=== PATIENT | female | born 1940 | race Caucasian/White ===

== ENCOUNTER 2025-02-05 14:00 | Inpatient (IN) | payer OTHER ==
[2025-02-05] MEDS ORDERED: ACETAMINOPHEN 500 MG TABLET (FP) ONE (14:49)
[2025-02-05 15:02] LABS: ABSOLUTE IMMATURE GRANULOCYTES 0.03 x10^3/uL (0.0-0.031); BASOPHILS # 0.04 x10^3/uL (0.01-0.08); EOSINOPHIL % 1.3 % (0.7-5.8); EOSINOPHILS # 0.13 x10^3/uL (0.04-0.36); HEMATOCRIT 35.3 % (34.1-44.9); HEMOGLOBIN 11.3 g/dL (11.2-15.7); MEAN CELL VOLUME 89.1 fl (79.4-94.8); MEAN PLT VOLUME 10.3 fl (9.4-12.3); MONOCYTE # 0.82 x10^3/uL (0.24-0.86); MONOCYTE % 7.9 % (4.7-12.5); PLATELET COUNT 301 x10^3/uL (182-369); RDW 14.6 % (12.5-17.0)
[2025-02-05 15:08] LABS: ALBUMIN 3.6 g/dl (3.4-5.0); BILIRUBIN,TOTAL 0.6 mg/dl (0.2-1); CALCIUM 9.3 mg/dl (8.5-10.1); POTASSIUM 4.8 mmol/L (3.5-5.1); TOT PROT 6.7 g/dl (6.4-8.2)
[2025-02-05] MEDS: ACETAMINOPHEN 500 MG TABLET (FP) PO ONE (15:10)
[2025-02-05] MEDS ORDERED: ALBUTEROL SO4 2.5/IPRATROPIUM 0.5 INH SOL 3 ML VIAL.NEB. NEB PRN (17:04)
[2025-02-05] MEDS ORDERED: ACETAMINOPHEN 1000 MG/100 ML BAG IVPB PRN (17:06)
[2025-02-05 18:49] VITALS: BMI 19.7
[2025-02-05 19:03] LABS: HCV DIAGNOSTIC IN-HOUSE W/RFLX NON-REACTIVE (NONREACTIVE); HIV INTERPRETATION NEGATIVE (NEGATIVE)
[2025-02-05] MEDS: ATORVASTATIN CA 80 MG TABLET (FP) PO SCH (22:04)
[2025-02-05] MEDS: BUDESONIDE/FORMETEROL FUMARATE 80/4.5 mcg INHALER IH SCH (22:10)
[2025-02-06 08:15] LABS: ABSOLUTE IMMATURE GRANULOCYTES 0.03 x10^3/uL (0.0-0.031); BASOPHILS # 0.03 x10^3/uL (0.01-0.08); EOSINOPHIL % 1.1 % (0.7-5.8); EOSINOPHILS # 0.12 x10^3/uL (0.04-0.36); HEMATOCRIT 35.4 % (34.1-44.9); HEMOGLOBIN 11.6 g/dL (11.2-15.7); MCHC 32.8 g/dl (32.2-35.5); MEAN CELL VOLUME 87.4 fl (79.4-94.8); MEAN PLT VOLUME 10.2 fl (9.4-12.3); MONOCYTE # 0.81 x10^3/uL (0.24-0.86); MONOCYTE % 7.5 % (4.7-12.5); PLATELET COUNT 314 x10^3/uL (182-369); RDW 14.5 % (12.5-17.0)
[2025-02-06 08:31] LABS: INR 1.16 (0.83-1.09); PROTHROMBIN TIME (PATIENT) 12.9 SEC (9.7-13.0)
[2025-02-06 08:48] LABS: ALBUMIN 3.5 g/dl (3.4-5.0); BILIRUBIN,TOTAL 0.8 mg/dl (0.2-1); CALCIUM 9.4 mg/dl (8.5-10.1); CREATININE 0.9 mg/dl (0.6-1.3); MAGNESIUM 1.8 mg/dL (1.8-2.4); PHOSPHOROUS 3.5 (2.5-4.9); POTASSIUM 4.8 mmol/L (3.5-5.1); TOT PROT 6.6 g/dl (6.4-8.2)
[2025-02-06] MEDS: ESCITALOPRAM OXALATE 10 MG TABLET PO SCH (10:09)
[2025-02-06] MEDS: PANTOPRAZOLE SODIUM 40 MG VIAL IVPUSH SCH (10:09)
[2025-02-06] MEDS: amLODIPine BESYLATE 5 MG TABLET (FP) PO SCH (10:09)
[2025-02-06] MEDS: ACETAMINOPHEN 1000 MG/100 ML BAG IVPB PRN (20:07)
[2025-02-07 08:27] LABS: ABSOLUTE IMMATURE GRANULOCYTES 0.05 x10^3/uL (0.0-0.031); BASOPHILS # 0.04 x10^3/uL (0.01-0.08); EOSINOPHIL % 0.9 % (0.7-5.8); HEMATOCRIT 36.5 % (34.1-44.9); HEMOGLOBIN 11.6 g/dL (11.2-15.7); MCHC 31.8 g/dl (32.2-35.5); MEAN PLT VOLUME 10.4 fl (9.4-12.3); MONOCYTE # 0.94 x10^3/uL (0.24-0.86); MONOCYTE % 8.1 % (4.7-12.5); PLATELET COUNT 325 x10^3/uL (182-369); RDW 14.7 % (12.5-17.0)
[2025-02-07 08:41] LABS: INR 1.21 (0.83-1.09); PROTHROMBIN TIME (PATIENT) 13.4 SEC (9.7-13.0)
[2025-02-07 08:53] LABS: CALCIUM 9.4 mg/dl (8.5-10.1); MAGNESIUM 1.8 mg/dL (1.8-2.4); PHOSPHOROUS 3.7 (2.5-4.9)
[2025-02-07] MEDS: ASPIRIN 81 MG CHEWABLE TABLETS PO SCH (11:41)
[2025-02-07] MEDS: GABAPENTIN 100 MG CAPSULE PO SCH (15:02)
[2025-02-07] MEDS: HEPARIN NA (PORCINE) 5,000 UNITS/ML 1ML VIAL SQ SCH (21:39)
[2025-02-09] MEDS: ACETAMINOPHEN 325 MG TABLET (FP) PO PRN (09:41)
[2025-02-09 12:36] VITALS: RESP 18
[2025-02-11 09:58] VITALS: BP 126/61; PULSE 87; TEMP 98.2
[2025-02-11 14:12] LABS: EPITHELIAL CELLS 0-5 /hpf
== END 2025-02-11 13:55 | DRG 536 ==
LOC: FER 14:00 → FM/S 16:27
PROVIDERS: ADMIT Internal Medicine
DX: S72.111A Displaced fracture of greater trochanter of right femur, initial encounter for closed fracture (principal); E44.0 Moderate protein-calorie malnutrition; Z68.1 Body mass index [BMI] 19.9 or less, adult; M25.551 Pain in right hip; J44.9 Chronic obstructive pulmonary disease, unspecified; I10 Essential (primary) hypertension; E78.5 Hyperlipidemia, unspecified; R26.2 Difficulty in walking, not elsewhere classified; I25.10 Atherosclerotic heart disease of native coronary artery without angina pectoris; W19.XXXA Unspecified fall, initial encounter; Y93.9 Activity, unspecified; Y92.89 Other specified places as the place of occurrence of the external cause; Y99.9 Unspecified external cause status
CPT/HCPCS: 36415; 70450-TC; 71045-TC-FY; 72125-TC; 72170-TC-FY; 72192-TC; 73721-RT-TC; 80048; 80053; 81003; 81015; 83735; 84100; 85025; 85610; 86803; 86850; 86900; 86901; 87389; 93005; 97116-GP; 97163-GP; 99285-25; J0131; J1644

== ENCOUNTER 2025-02-19 08:11 | Inpatient (IN) | payer OTHER ==
[2025-02-19] MEDS ORDERED: ALBUTEROL SO4 0.083% IH SOL 2.5 MG/3 ML VIAL.NEB. NEB ONE (08:59)
[2025-02-19] MEDS ORDERED: methylPREDNISolone NA SUCC 125 MG/2 ML VIAL ONE (08:59)
[2025-02-19 09:01] LABS: HEMATOCRIT 40.2 % (34.1-44.9); HEMOGLOBIN 11.2 g/dL (11.2-15.7); MCHC 27.9 g/dl (32.2-35.5); MEAN CELL VOLUME 97.8 fl (79.4-94.8); MEAN PLT VOLUME 9.8 fl (9.4-12.3); PLATELET COUNT 797 x10^3/uL (182-369); RDW 14.9 % (12.5-17.0)
[2025-02-19 09:03] LABS: VENOUS BASE EXCESS -27.7 mmol/L (-2-2); VENOUS PCO2 24.5 mmHg (38-52)
[2025-02-19 09:07] LABS: VENOUS PH 6.881 (7.310-7.410)
[2025-02-19] MEDS: ALBUTEROL SO4 0.083% IH SOL 2.5 MG/3 ML VIAL.NEB. NEB SCH (09:22)
[2025-02-19] MEDS: methylPREDNISolone NA SUCC 125 MG/2 ML VIAL IVPUSH ONE (09:22)
[2025-02-19] MEDS ORDERED: PIPERACILLIN/TAZOB 3.375 GM 3.375 GM/50 ML BAG IVPB ONE (09:36)
[2025-02-19] MEDS ORDERED: VANCOMYCIN 1 GM PREMIX (F) 1 GM/200 ML BAG ONE (09:36)
[2025-02-19] MEDS: VANCOMYCIN 1,000 MG in DEXTROSE 5%-WATER - 250 ML IVPB ONE (09:45)
[2025-02-19] MEDS: PIPERACILLIN/TAZOB 3.375 GM 3.375 GM in DEXTROSE 5%-WATER - 50 ML IVPB ONE (09:45)
[2025-02-19 10:07] LABS: CHLORIDE 99 mmol/L (98-107); SODIUM 134 mmol/L (136-145)
[2025-02-19 10:10] LABS: ALBUMIN 2.6 g/dl (3.4-5.0); BLOOD UREA NITROGEN 63.2 mg/dL (7-18); CO2 5 mmol/L (21-32); GLUCOSE,RANDOM 112 mg/dL (74-106)
[2025-02-19 10:14] LABS: CREATININE 6.4 mg/dL (0.55-1.3); SGOT/AST 57 U/L (15-37)
[2025-02-19 10:15] LABS: BILIRUBIN,TOTAL 0.5 mg/dL (0.2-1); TOT PROT 7.3 g/dl (6.4-8.2)
[2025-02-19 10:16] LABS: ALK PHOS 141 U/L (45-117)
[2025-02-19 10:20] LABS: SGPT/ALT 49 U/L (13-61)
[2025-02-19] MEDS: SODIUM CHLORIDE 1,000 ML IV STA (10:25)
[2025-02-19 10:32] LABS: ANION GAP 30 mmol/L (4-13); POTASSIUM 8.2 mmol/L (3.5-5.1)
[2025-02-19] MEDS ORDERED: DEXTROSE 50%-WATER 25 GM/50 ML DISP.SYRIN ONE (11:16)
[2025-02-19] MEDS ORDERED: CALCIUM GLUC IN NACL, ISO-OSM 1 GM/50 ML BAG IVPB ONE (11:16)
[2025-02-19] MEDS ORDERED: INSULIN REGULAR HUMAN 100 UNITS/ML *VIAL ONE (11:17)
[2025-02-19 11:22] LABS: LACTIC ACID 13.5 mmol/L (0.4-2.0)
[2025-02-19] MEDS: INSULIN REGULAR HUMAN 100 UNITS/ML *VIAL IVPUSH ONE (11:44)
[2025-02-19] MEDS: DEXTROSE 50%-WATER - 25 GM/50 ML VIAL IVPUSH ONE (11:44)
[2025-02-19] MEDS: CALCIUM GLUCONATE 10% - 1,000 MG/10 ML VIAL IVPB ONE (11:44)
[2025-02-19 12:04] LABS: CHLORIDE 102 mmol/L (98-107); SODIUM 135 mmol/L (136-145)
[2025-02-19 12:08] LABS: CALCIUM 8.5 mg/dL (8.5-10.1)
[2025-02-19 12:09] LABS: BLOOD UREA NITROGEN 64.8 mg/dL (7-18); CO2 3 mmol/L (21-32); GLUCOSE,RANDOM 210 mg/dL (74-106)
[2025-02-19 12:12] LABS: CREATININE 6.4 mg/dL (0.55-1.3)
[2025-02-19 12:16] LABS: ANION GAP 30 mmol/L (4-13); POTASSIUM 7.9 mmol/L (3.5-5.1)
[2025-02-19] MEDS ORDERED: SODIUM BICARBONATE 8.4% 50 MEQ/50 ML DISP.SYRIN ONE (12:21)
[2025-02-19] MEDS: SODIUM BICARBONATE 8.4% 50 MEQ/50 ML VIAL IV ONE (12:27)
[2025-02-19] MEDS ORDERED: SODIUM CHLORIDE 250 ML IV PRN (13:12)
[2025-02-19] MEDS: SODIUM BICARBONATE 8.4% - 150 MEQ in DEXTROSE 5%-WATER - 950 ML IVPB SCH (14:20)
[2025-02-19] MEDS: SODIUM CHLORIDE 500 ML IV STA (14:42)
[2025-02-19] MEDS ORDERED: VASopressin 20 UNITS/ML VIAL IV ONE (16:01)
[2025-02-19] MEDS: NOREPINEPHRINE BITARTRATE/D5W 8 MG/250 ML BAG IVPB SCH (16:11)
[2025-02-19] MEDS: VASopressin 40 UNITS/100 ML BAG IV SCH (16:11)
[2025-02-19] MEDS: SODIUM CHLORIDE 250 ML IV STA (16:16)
[2025-02-19] MEDS: SODIUM BICARBONATE 8.4% 50 MEQ/50 ML DISP.SYRIN IVPUSH ONE (16:20)
[2025-02-19] MEDS ORDERED: METOPROLOL TARTRATE 5 MG/5 ML VIAL IVPUSH PRN (17:46)
[2025-02-19 18:52] LABS: HEPATITIS B SURF AG NON-MATERN NON-REACTIVE (NONREACTIVE)
[2025-02-19] MEDS ORDERED: AMIODARONE IN DEXTROSE,ISO-OSM 360 MG/200 ML BAG IV SCH (19:15)
[2025-02-19] MEDS: HYDROCORTISONE SOD SUCCINATE 100 MG/2 ML VIAL IVPUSH SCH (20:17)
[2025-02-19 20:28] LABS: HEMATOCRIT 27.7 % (34.1-44.9); HEMOGLOBIN 8.8 g/dL (11.2-15.7); MCHC 31.8 g/dl (32.2-35.5); MEAN CELL VOLUME 88.8 fl (79.4-94.8); PLATELET COUNT 548 x10^3/uL (182-369); RDW 14.8 % (12.5-17.0)
[2025-02-19 20:53] LABS: POTASSIUM 4.7 mmol/L (3.5-5.1)
[2025-02-19 20:55] LABS: CALCIUM 8.1 mg/dL (8.5-10.1)
[2025-02-19 20:56] LABS: ALBUMIN 2.2 g/dl (3.4-5.0)
[2025-02-19 20:59] LABS: CREATININE 3.7 mg/dL (0.55-1.3)
[2025-02-19 21:01] LABS: BILIRUBIN,TOTAL 0.4 mg/dL (0.2-1); TOT PROT 5.8 g/dl (6.4-8.2)
[2025-02-19 21:32] LABS: BLOOD UREA NITROGEN 34.6 mg/dL (7-18)
[2025-02-19] MEDS: INSULIN ASPART SLIDING SCALE (NOVOLOG) 1 VIAL SQ SCH (21:58)
[2025-02-19] MEDS ORDERED: INSULIN ASPART SLIDING SCALE (NOVOLOG) 1 VIAL SQ SCH (22:00)
[2025-02-19] MEDS: MUPIROCIN 2% TOPICAL OINTMENT FOR DECOLONIZATION NS SCH (22:04)
[2025-02-19] MEDS: CHLORHEXIDINE GLUCONATE 4% CLEANSER FOR DECOLONIZATION TP SCH (22:04)
[2025-02-20] MEDS: PIPERACILLIN/TAZOB 2.25 GM 2.25 GM in DEXTROSE 5%-WATER - 50 ML IVPB SCH ×2 (00:37→09:56)
[2025-02-20 06:51] LABS: HEMATOCRIT 26.2 % (34.1-44.9); HEMOGLOBIN 8.3 g/dL (11.2-15.7); MCHC 31.7 g/dl (32.2-35.5); MEAN CELL VOLUME 86.2 fl (79.4-94.8); MEAN PLT VOLUME 9.9 fl (9.4-12.3); PLATELET COUNT 533 x10^3/uL (182-369); RDW 14.9 % (12.5-17.0)
[2025-02-20 07:54] LABS: POTASSIUM 4.2 mmol/L (3.5-5.1)
[2025-02-20 08:08] LABS: ALBUMIN 2.2 g/dl (3.4-5.0); BLOOD UREA NITROGEN 46.7 mg/dL (7-18); CALCIUM 7.4 mg/dL (8.5-10.1)
[2025-02-20 08:09] LABS: CREATININE 4.3 mg/dL (0.55-1.3)
[2025-02-20 08:10] LABS: BILIRUBIN,TOTAL 0.5 mg/dL (0.2-1)
[2025-02-20 08:14] LABS: TOT PROT 5.8 g/dl (6.4-8.2)
[2025-02-20 09:51] LABS: ARTERIAL BLD GAS O2 SATURATION 99.1 % (95-98); ARTERIAL BLOOD GAS BASE EXCESS -7.2 mmol/L (-2-2); ARTERIAL BLOOD GAS PO2 151.3 mmHg (80-100); ARTERIAL BLOOD GAS pH 7.449 (7.350-7.450)
[2025-02-20 09:55] LABS: ALLENS TEST POSITIVE
[2025-02-20 10:35] LABS: EPI CELLS 11 /uL (0-25.1); HYALINE CASTS 1 /uL (0-3.1); PH,URINE 7.5 (5.0-8.0); URINE APPEARANCE CLOUDY; URINE BACTERIA 7 /uL (0-1359); URINE BILIRUBIN NEGATIVE (NEGATIVE); URINE COLOR YELLOW; URINE GLUCOSE (UA) 2+ (NEGATIVE); URINE KETONE 1+ (NEGATIVE); URINE LEUK ESTERASE 1+ (NEGATIVE); URINE NITRITE NEGATIVE (NEGATIVE); URINE PROTEIN 1+ (NEGATIVE); URINE UROBILINOGEN 0.2 mg/dL (0.2-1.0); URINE WBC 6 /uL (0-25.8)
[2025-02-20 10:55] LABS: URINE RBC 384 /uL (0-23.9); YEAST NONE SEEN (NEGATIVE)
[2025-02-20 11:14] LABS: LACTIC ACID 9.2 mmol/L (0.4-2.0)
[2025-02-20] MEDS ORDERED: SODIUM CHLORIDE 250 ML IV PRN (11:38)
[2025-02-20] MEDS: LACTATED RINGERS SOLUTION 1,000 ML/1,000 ML INFUS.BAG IV SCH (12:22)
[2025-02-20] MEDS: ALBUMIN HUMAN 25% 12.5 GM/50 ML VIAL IV SCH (14:30)
[2025-02-20 14:32] LABS: LACTIC ACID 5.9 mmol/L (0.4-2.0)
[2025-02-20] MEDS: PIPERACILLIN/TAZOB 2.25 GM 2.25 GM/50 ML BAG IVPB SCH (17:48)
[2025-02-21 06:57] LABS: HEMATOCRIT 25.1 % (34.1-44.9); HEMOGLOBIN 7.9 g/dL (11.2-15.7); MCHC 31.5 g/dl (32.2-35.5); MEAN CELL VOLUME 85.4 fl (79.4-94.8); MEAN PLT VOLUME 9.9 fl (9.4-12.3); PLATELET COUNT 381 x10^3/uL (182-369); RDW 14.9 % (12.5-17.0)
[2025-02-21 07:14] LABS: EPI CELLS 2 /uL (0-25.1); HYALINE CASTS 0 /uL (0-3.1); PH,URINE 8.5 (5.0-8.0); URINE APPEARANCE CLEAR; URINE BACTERIA 4 /uL (0-1359); URINE BILIRUBIN NEGATIVE (NEGATIVE); URINE COLOR YELLOW; URINE GLUCOSE (UA) 1+ (NEGATIVE); URINE KETONE TRACE (NEGATIVE); URINE LEUK ESTERASE NEGATIVE (NEGATIVE); URINE NITRITE NEGATIVE (NEGATIVE); URINE PROTEIN 1+ (NEGATIVE); URINE RBC 213 /uL (0-23.9); URINE UROBILINOGEN 0.2 mg/dL (0.2-1.0); URINE WBC 4 /uL (0-25.8)
[2025-02-21 07:18] LABS: POTASSIUM 3.1 mmol/L (3.5-5.1)
[2025-02-21 07:24] LABS: BLOOD UREA NITROGEN 34.1 mg/dL (7-18); MAGNESIUM 2.1 mg/dL (1.8-2.4)
[2025-02-21 07:27] LABS: CREATININE 2.3 mg/dL (0.55-1.3); PHOSPHOROUS 4.1 mg/dL (2.5-4.9)
[2025-02-21 07:28] LABS: BILIRUBIN,TOTAL 0.6 mg/dL (0.2-1); TOT PROT 6.1 g/dl (6.4-8.2)
[2025-02-21 07:40] LABS: ALBUMIN 2.9 g/dl (3.4-5.0); CALCIUM 9.1 mg/dL (8.5-10.1)
[2025-02-21] MEDS: KCL 20 MEQ PREMIX BAG 20 MEQ/100 ML INFUS.BAG IVPB SCH (08:57)
[2025-02-21 09:10] LABS: YEAST NONE SEEN (NEGATIVE)
[2025-02-22 07:23] LABS: ABSOLUTE IMMATURE GRANULOCYTES 0.08 x10^3/uL (0.0-0.031); BASOPHILS # 0.01 x10^3/uL (0.01-0.08); HEMATOCRIT 25.6 % (34.1-44.9); MCHC 31.3 g/dl (32.2-35.5); MEAN CELL VOLUME 86.2 fl (79.4-94.8); MEAN PLT VOLUME 9.8 fl (9.4-12.3); MONOCYTE # 0.44 x10^3/uL (0.24-0.86); MONOCYTE % 3.1 % (4.7-12.5); PLATELET COUNT 314 x10^3/uL (182-369); RDW 14.6 % (12.5-17.0)
[2025-02-22 07:50] LABS: ALBUMIN 2.7 g/dl (3.4-5.0); CALCIUM 9.1 mg/dL (8.5-10.1); MAGNESIUM 1.7 mg/dL (1.8-2.4)
[2025-02-22 07:53] LABS: CREATININE 2.8 mg/dL (0.55-1.3)
[2025-02-22 07:54] LABS: PHOSPHOROUS 4.1 mg/dL (2.5-4.9)
[2025-02-22 07:55] LABS: BILIRUBIN,TOTAL 0.6 mg/dL (0.2-1); TOT PROT 5.9 g/dl (6.4-8.2)
[2025-02-22] MEDS: KCL 10 MEQ IVPB 10 MEQ/100 ML INFUS.BAG IVPB SCH (09:58)
[2025-02-22] MEDS: MAGNESIUM SULFATE IN WATER 2 GM/50 ML IVPB IVPB ONE (10:01)
[2025-02-22] MEDS: POTASSIUM CHLORIDE ORAL LIQUID 20 MEQ/15 ML PO ONE (10:51)
[2025-02-22] MEDS ORDERED: SODIUM CHLORIDE 250 ML IV PRN (14:58)
[2025-02-23 07:08] LABS: HEMATOCRIT 27.1 % (34.1-44.9); HEMOGLOBIN 8.5 g/dL (11.2-15.7); MCHC 31.4 g/dl (32.2-35.5); MEAN CELL VOLUME 85.2 fl (79.4-94.8); PLATELET COUNT 336 x10^3/uL (182-369); RDW 14.1 % (12.5-17.0)
[2025-02-23 07:41] LABS: CALCIUM 9.1 mg/dL (8.5-10.1)
[2025-02-23 07:42] LABS: ALBUMIN 2.8 g/dl (3.4-5.0); BLOOD UREA NITROGEN 44.8 mg/dL (7-18)
[2025-02-23 07:45] LABS: CREATININE 2.7 mg/dL (0.55-1.3); PHOSPHOROUS 3.3 mg/dL (2.5-4.9)
[2025-02-23 07:46] LABS: BILIRUBIN,TOTAL 0.7 mg/dL (0.2-1)
[2025-02-23] MEDS: POTASSIUM CHLORIDE ORAL LIQUID 20 MEQ/15 ML PO ONE (09:58)
[2025-02-23] MEDS ORDERED: BUDESONIDE IH SCH (10:00)
[2025-02-23] MEDS ORDERED: FORMOTEROL FUMARATE IH SCH (10:00)
[2025-02-23] MEDS ORDERED: [UNRECOGNIZED DRUG - OTHER] IH SCH (10:00)
[2025-02-23 14:32] VITALS: BMI 19.7
[2025-02-23] MEDS ORDERED: ALBUTEROL SO4 2.5/IPRATROPIUM 0.5 INH SOL 3 ML VIAL.NEB. NEB PRN (19:02)
[2025-02-23] MEDS: BUDESONIDE/FORMETEROL FUMARATE 160/4.5 mcg INHALER IH SCH (21:09)
[2025-02-23] MEDS: HEPARIN NA (PORCINE) 5,000 UNITS/ML 1ML VIAL SQ SCH (21:09)
[2025-02-23] MEDS: INSULIN ASPART SLIDING SCALE (NOVOLOG) 1 VIAL SQ SCH (21:12)
[2025-02-24] MEDS: PIPERACILLIN/TAZOB 2.25 GM 2.25 GM in DEXTROSE 5%-WATER - 50 ML IVPB SCH (01:50)
[2025-02-24 08:13] LABS: HEMATOCRIT 28.2 % (34.1-44.9); HEMOGLOBIN 8.9 g/dL (11.2-15.7); MCHC 31.6 g/dl (32.2-35.5); MEAN PLT VOLUME 9.7 fl (9.4-12.3); PLATELET COUNT 251 x10^3/uL (182-369); RDW 14.2 % (12.5-17.0)
[2025-02-24 08:22] LABS: POTASSIUM 3.4 mmol/L (3.5-5.1)
[2025-02-24 08:36] LABS: ALBUMIN 2.5 g/dl (3.4-5.0); BLOOD UREA NITROGEN 35.1 mg/dL (7-18); CALCIUM 9.1 mg/dL (8.5-10.1); MAGNESIUM 1.9 mg/dL (1.8-2.4)
[2025-02-24 08:39] LABS: CREATININE 2.4 mg/dL (0.55-1.3)
[2025-02-24 08:40] LABS: PHOSPHOROUS 2.3 mg/dL (2.5-4.9); TOT PROT 5.7 g/dl (6.4-8.2)
[2025-02-24 08:41] LABS: BILIRUBIN,TOTAL 0.6 mg/dL (0.2-1)
[2025-02-24] MEDS ORDERED: MUPIROCIN 2% TOPICAL OINTMENT FOR DECOLONIZATION NS SCH (10:00)
[2025-02-24] MEDS: amLODIPine BESYLATE 5 MG TABLET (FP) PO SCH (10:30)
[2025-02-24] MEDS: ASPIRIN COATED 81 MG TABLET.EC PO SCH (10:30)
[2025-02-24] MEDS: BUDESONIDE/FORMETEROL FUMARATE 160/4.5 mcg INHALER IH SCH (10:32)
[2025-02-24] MEDS ORDERED: CHLORHEXIDINE GLUCONATE 4% CLEANSER FOR DECOLONIZATION TP SCH (22:00)
[2025-02-25 08:53] LABS: ABSOLUTE IMMATURE GRANULOCYTES 0.06 x10^3/uL (0.0-0.031); BASOPHILS # 0.01 x10^3/uL (0.01-0.08); EOSINOPHIL % 1.8 % (0.7-5.8); HEMATOCRIT 28.7 % (34.1-44.9); MCHC 31.4 g/dl (32.2-35.5); MEAN PLT VOLUME 10.3 fl (9.4-12.3); MONOCYTE # 0.55 x10^3/uL (0.24-0.86); PLATELET COUNT 258 x10^3/uL (182-369); RDW 14.4 % (12.5-17.0)
[2025-02-25 09:26] LABS: POTASSIUM 3.5 mmol/L (3.5-5.1)
[2025-02-25 09:28] LABS: ALBUMIN 2.4 g/dl (3.4-5.0); BLOOD UREA NITROGEN 34.5 mg/dL (7-18); MAGNESIUM 1.8 mg/dL (1.8-2.4)
[2025-02-25 09:31] LABS: CALCIUM 8.8 mg/dL (8.5-10.1); CREATININE 2.6 mg/dL (0.55-1.3)
[2025-02-25 09:32] LABS: PHOSPHOROUS 3.1 mg/dL (2.5-4.9)
[2025-02-25 09:33] LABS: BILIRUBIN,TOTAL 0.4 mg/dL (0.2-1); TOT PROT 5.8 g/dl (6.4-8.2)
[2025-02-25 18:40] VITALS: RESP 18
[2025-02-25] MEDS: SODIUM CHLORIDE 500 ML IV STA (20:02)
[2025-02-25] MEDS: ATORVASTATIN CA 80 MG TABLET (FP) PO SCH (21:15)
[2025-02-26 05:16] VITALS: BP 107/58; PULSE 68; TEMP 98.4
[2025-02-26] MEDS: ESCITALOPRAM OXALATE 10 MG TABLET PO SCH (09:44)
== END 2025-02-26 19:26 | DRG 871 ==
LOC: JER 08:11 → JERBED 13:02 → JICU 15:13 → J6S 02-24 00:10
PROVIDERS: ADMIT Internal Medicine Pulmonary Disease; ATTEND Internal Medicine
PROC: 5A1D70Z Performance of Urinary Filtration, Intermittent, Less than 6 Hours Per Day (ICD-10-PCS; principal; 2025-02-19)
DX: A41.9 Sepsis, unspecified organism (principal); J18.9 Pneumonia, unspecified organism; J96.01 Acute respiratory failure with hypoxia; R65.21 Severe sepsis with septic shock; N17.9 Acute kidney failure, unspecified; E87.20 Acidosis, unspecified; J44.0 Chronic obstructive pulmonary disease with (acute) lower respiratory infection; N13.30 Unspecified hydronephrosis; I10 Essential (primary) hypertension; E78.5 Hyperlipidemia, unspecified; I25.10 Atherosclerotic heart disease of native coronary artery without angina pectoris; E87.5 Hyperkalemia; I48.91 Unspecified atrial fibrillation; E11.65 Type 2 diabetes mellitus with hyperglycemia
CPT/HCPCS: 0241U-QW; 36415; 36600; 70450-TC; 71045-TC-FY; 76775-TC; 80048; 80053; 81003; 82803; 82962; 83605; 83735; 83880; 84100; 84484; 85025; 85027; 86704; 87040; 87086; 87340; 87481; 87517; 93005; 93010; 97116-GP; 97162-GP; 99291; G0480; J1644; J3490; P9047

== ENCOUNTER 2025-03-05 07:29 | Inpatient (IN) | payer OTHER ==
[2025-03-05 08:40] LABS: VENOUS BASE EXCESS -6.4 mmol/L (-2-2); VENOUS O2 SATURATION 23.2 % (70-80); VENOUS PCO2 42.9 mmHg (38-52); VENOUS PH 7.285 (7.310-7.410)
[2025-03-05 08:43] LABS: HEMATOCRIT 22.8 % (34.1-44.9); HEMOGLOBIN 7.2 g/dL (11.2-15.7); MCHC 31.6 g/dl (32.2-35.5); MEAN CELL VOLUME 86.4 fl (79.4-94.8); MEAN PLT VOLUME 9.9 fl (9.4-12.3); PLATELET COUNT 399 x10^3/uL (182-369); RDW 15.7 % (12.5-17.0)
[2025-03-05 08:51] LABS: INR 1.48 (0.83-1.09); PROTHROMBIN TIME (PATIENT) 16.1 SEC (9.7-13.0)
[2025-03-05 09:05] LABS: POTASSIUM 3.7 mmol/L (3.5-5.1)
[2025-03-05 09:07] LABS: ALBUMIN 2.1 g/dl (3.4-5.0); CALCIUM 7.9 mg/dL (8.5-10.1); MAGNESIUM 1.7 mg/dL (1.8-2.4)
[2025-03-05 09:10] LABS: CREATININE 6.4 mg/dL (0.55-1.3)
[2025-03-05 09:12] LABS: BILIRUBIN,TOTAL 0.5 mg/dL (0.2-1); TOT PROT 6.4 g/dl (6.4-8.2)
[2025-03-05 09:23] LABS: LACTIC ACID 3.7 mmol/L (0.4-2.0)
[2025-03-05 09:26] LABS: BLOOD UREA NITROGEN 66.8 mg/dL (7-18)
[2025-03-05 09:31] LABS: EPI CELLS 16 /uL (0-25.1); HYALINE CASTS 7 /uL (0-3.1); PH,URINE 5.5 (5.0-8.0); URINE APPEARANCE TURBID; URINE BACTERIA 756 /uL (0-1359); URINE BILIRUBIN NEGATIVE (NEGATIVE); URINE COLOR YELLOW; URINE GLUCOSE (UA) NEGATIVE (NEGATIVE); URINE KETONE NEGATIVE (NEGATIVE); URINE LEUK ESTERASE 3+ (NEGATIVE); URINE NITRITE NEGATIVE (NEGATIVE); URINE PROTEIN 3+ (NEGATIVE); URINE UROBILINOGEN 0.2 mg/dL (0.2-1.0); URINE WBC 14101 /uL (0-25.8)
[2025-03-05] MEDS: SODIUM CHLORIDE 0.9% 500 ML INFUS.BAG IV ONE ×2 (09:31→14:54)
[2025-03-05] MEDS ORDERED: PIPERACILLIN/TAZOB 4.5 GM 4.5 GM/100 ML BAG IVPB ONE (09:45)
[2025-03-05 10:03] LABS: URINE RBC 1855 /uL (0-23.9); YEAST PRESENT (NEGATIVE)
[2025-03-05 10:04] LABS: URINE CRYSTALS PRESENT /hpf
[2025-03-05] MEDS: PIPERACILLIN/TAZOB 4.5 GM 4.5 GM in DEXTROSE 5%-WATER 100 ML IVPB ONE (10:05)
[2025-03-05] MEDS ORDERED: MAGNESIUM SULFATE IN WATER 2 GM/50 ML IVPB IVPB ONE (10:38)
[2025-03-05] MEDS: MAGNESIUM 2GM/50ML STERILE WATER IVPB IVPB ONE (10:45)
[2025-03-05] MEDS: LACTATED RINGERS SOLUTION 1000 ML INFUS.BAG IV ONE (10:51)
[2025-03-05] MEDS ORDERED: ACETAMINOPHEN 325 MG TABLET (FP) ONE (11:07)
[2025-03-05] MEDS: ACETAMINOPHEN 325 MG TABLET (FP) PO ONE (11:30)
[2025-03-05 13:21] LABS: PHOSPHOROUS 6.8 mg/dL (2.5-4.9)
[2025-03-05 13:35] LABS: LACTIC ACID 2.9 mmol/L (0.4-2.0)
[2025-03-05 13:40] LABS: VENOUS BASE EXCESS -7.1 mmol/L (-2-2); VENOUS O2 SATURATION 40.7 % (70-80); VENOUS PCO2 37.2 mmHg (38-52); VENOUS PH 7.314 (7.310-7.410)
[2025-03-05 14:09] LABS: POTASSIUM 3.5 mmol/L (3.5-5.1)
[2025-03-05 14:10] LABS: CALCIUM 7.6 mg/dL (8.5-10.1)
[2025-03-05 14:11] LABS: ALBUMIN 1.8 g/dl (3.4-5.0); BLOOD UREA NITROGEN 61.6 mg/dL (7-18)
[2025-03-05 14:14] LABS: CREATININE 6.1 mg/dL (0.55-1.3)
[2025-03-05 14:16] LABS: BILIRUBIN,TOTAL 0.4 mg/dL (0.2-1); TOT PROT 5.6 g/dl (6.4-8.2)
[2025-03-05] MEDS: CEFTRIAXONE 1 G/50 ML PREMIX 50 ML IVPB SCH (14:21)
[2025-03-05] MEDS ORDERED: CEFTRIAXONE 1 G/50 ML PREMIX 50 ML IVPB ONE (14:21)
[2025-03-05] MEDS ORDERED: LACTATED RINGERS SOLUTION 1,000 ML/1,000 ML INFUS.BAG IV SCH ×2 (14:30→15:09)
[2025-03-05 16:07] LABS: LACTIC ACID 3.1 mmol/L (0.4-2.0)
[2025-03-05] MEDS: SODIUM CHLORIDE 500 ML IV STA (16:09)
[2025-03-05] MEDS: LACTATED RINGERS SOLUTION 1,000 ML/1,000 ML INFUS.BAG IV SCH (17:17)
[2025-03-05] MEDS: INSULIN ASPART SLIDING SCALE (NOVOLOG) 1 VIAL SQ SCH (18:17)
[2025-03-05] MEDS: BUDESONIDE/FORMETEROL FUMARATE 160/4.5 mcg INHALER IH SCH (21:37)
[2025-03-05] MEDS: ATORVASTATIN CA 80 MG TABLET (FP) PO SCH (21:37)
[2025-03-05] MEDS ORDERED: FORMOTEROL FUMARATE IH SCH (22:00)
[2025-03-05] MEDS ORDERED: [UNRECOGNIZED DRUG - OTHER] IH SCH (22:00)
[2025-03-05] MEDS ORDERED: BUDESONIDE IH SCH (22:00)
[2025-03-05 22:27] LABS: LACTIC ACID 2.9 mmol/L (0.4-2.0)
[2025-03-05] MEDS: LACTATED RINGERS SOLUTION 1,000 ML/1,000 ML INFUS.BAG IV STA (22:57)
[2025-03-06 08:37] LABS: HEMATOCRIT 19.2 % (34.1-44.9); HEMOGLOBIN 5.9 g/dL (11.2-15.7); MCHC 30.7 g/dl (32.2-35.5); MEAN CELL VOLUME 86.9 fl (79.4-94.8); MEAN PLT VOLUME 10.1 fl (9.4-12.3); PLATELET COUNT 324 x10^3/uL (182-369); RDW 15.9 % (12.5-17.0)
[2025-03-06 09:15] LABS: POTASSIUM 3.5 mmol/L (3.5-5.1)
[2025-03-06 09:34] LABS: ALBUMIN 1.8 g/dl (3.4-5.0); BLOOD UREA NITROGEN 59.4 mg/dL (7-18); CALCIUM 7.8 mg/dL (8.5-10.1); MAGNESIUM 1.8 mg/dL (1.8-2.4)
[2025-03-06 09:37] LABS: CREATININE 5.7 mg/dL (0.55-1.3); PHOSPHOROUS 5.5 mg/dL (2.5-4.9)
[2025-03-06 09:38] LABS: BILIRUBIN,TOTAL 0.3 mg/dL (0.2-1)
[2025-03-06 09:39] LABS: TOT PROT 5.3 g/dl (6.4-8.2)
[2025-03-06] MEDS ORDERED: amLODIPine BESYLATE 5 MG TABLET (FP) PO SCH (10:00)
[2025-03-06] MEDS: GABAPENTIN 300 MG CAPSULE PO SCH (11:59)
[2025-03-06] MEDS: SEVELAMER CARBONATE 2.4 GM POWDER PACKET PO SCH (12:04)
[2025-03-06] MEDS: ACETAMINOPHEN 325 MG TABLET (FP) PO ONE (15:21)
[2025-03-06 16:16] LABS: HEMATOCRIT 22.2 % (34.1-44.9); HEMOGLOBIN 6.9 g/dL (11.2-15.7); MCHC 31.1 g/dl (32.2-35.5); MEAN CELL VOLUME 83.5 fl (79.4-94.8); MEAN PLT VOLUME 9.9 fl (9.4-12.3); PLATELET COUNT 274 x10^3/uL (182-369); RDW 17.5 % (12.5-17.0)
[2025-03-06] MEDS: METOPROLOL TARTRATE 5 MG/5 ML VIAL IVPUSH ONE ×2 (17:37→18:08)
[2025-03-06] MEDS: SODIUM CHLORIDE 1,000 ML IV STA (17:57)
[2025-03-06] MEDS ORDERED: PIPERACILLIN/TAZOB 2.25 GM 2.25 GM in DEXTROSE 5%-WATER - 50 ML IVPB SCH (18:00)
[2025-03-06 18:04] LABS: HEMATOCRIT 22.1 % (34.1-44.9); MCHC 31.7 g/dl (32.2-35.5); MEAN CELL VOLUME 81.9 fl (79.4-94.8); MEAN PLT VOLUME 9.9 fl (9.4-12.3); PLATELET COUNT 278 x10^3/uL (182-369); RDW 17.8 % (12.5-17.0)
[2025-03-06 18:18] LABS: INR 1.48 (0.83-1.09); PROTHROMBIN TIME (PATIENT) 16.3 SEC (9.7-13.0)
[2025-03-06 18:29] LABS: POTASSIUM 3.6 mmol/L (3.5-5.1)
[2025-03-06 18:31] LABS: ALBUMIN 1.8 g/dl (3.4-5.0); CALCIUM 7.6 mg/dL (8.5-10.1)
[2025-03-06 18:32] LABS: BLOOD UREA NITROGEN 60.4 mg/dL (7-18)
[2025-03-06 18:35] LABS: CREATININE 5.8 mg/dL (0.55-1.3)
[2025-03-06 18:36] LABS: BILIRUBIN,TOTAL 0.7 mg/dL (0.2-1); TOT PROT 5.3 g/dl (6.4-8.2)
[2025-03-06] MEDS: METOPROLOL TARTRATE 25 MG TABLET (FP) PO SCH (18:45)
[2025-03-06] MEDS: PIPERACILLIN/TAZOB 2.25 GM 2.25 GM in DEXTROSE 5%-WATER - 50 ML IVPB SCH (18:46)
[2025-03-06] MEDS: MAGNESIUM SULFATE IN WATER 2 GM/50 ML IVPB IVPB ONE (21:07)
[2025-03-06] MEDS ORDERED: PATIENT'S OWN MEDICATION (NON-FORMULARY) (Fluticasone Propion/Salmeterol [Advair 250-50 Di IH SCH (22:00)
[2025-03-07 00:41] LABS: EPI CELLS >36 /uL (0-25.1); HYALINE CASTS 15 /uL (0-3.1); PH,URINE 5.5 (5.0-8.0); URINE APPEARANCE TURBID; URINE BACTERIA 82 /uL (0-1359); URINE BILIRUBIN NEGATIVE (NEGATIVE); URINE COLOR YELLOW; URINE GLUCOSE (UA) NEGATIVE (NEGATIVE); URINE KETONE TRACE (NEGATIVE); URINE LEUK ESTERASE 3+ (NEGATIVE); URINE NITRITE NEGATIVE (NEGATIVE); URINE PROTEIN 3+ (NEGATIVE); URINE UROBILINOGEN 0.2 mg/dL (0.2-1.0)
[2025-03-07] MEDS: LACTATED RINGERS SOLUTION 1,000 ML/1,000 ML INFUS.BAG IV SCH (03:02)
[2025-03-07 03:16] LABS: YEAST FEW (NEGATIVE)
[2025-03-07 07:12] LABS: HEMATOCRIT 26.8 % (34.1-44.9); HEMOGLOBIN 8.5 g/dL (11.2-15.7); MCHC 31.7 g/dl (32.2-35.5); MEAN CELL VOLUME 85.9 fl (79.4-94.8); MEAN PLT VOLUME 10.2 fl (9.4-12.3); PLATELET COUNT 295 x10^3/uL (182-369)
[2025-03-07 07:43] LABS: CALCIUM 7.5 mg/dL (8.5-10.1)
[2025-03-07 07:44] LABS: ALBUMIN 1.6 g/dl (3.4-5.0)
[2025-03-07 07:46] LABS: BILIRUBIN,TOTAL 0.5 mg/dL (0.2-1); TOT PROT 4.8 g/dl (6.4-8.2)
[2025-03-07 08:04] LABS: LACTIC ACID 2.2 mmol/L (0.4-2.0)
[2025-03-07] MEDS ORDERED: PATIENT'S OWN MEDICATION (NON-FORMULARY) (Omeprazole 20 MG Capsule.Dr) PO SCH (10:00)
[2025-03-07] MEDS: PANTOPRAZOLE 20 MG TABLET PO SCH (10:42)
[2025-03-07] MEDS: ESCITALOPRAM OXALATE 10 MG TABLET PO SCH (10:42)
[2025-03-07] MEDS: NYSTATIN POWDER 100,000 UNITS/GM - 15 GM TOPICAL POWDER TP SCH (12:01)
[2025-03-08] MEDS ORDERED: PIPERACILLIN/TAZOB 2.25 GM 2.25 GM in DEXTROSE 5%-WATER - 50 ML IVPB SCH (02:00)
[2025-03-08] MEDS: INSULIN ASPART SLIDING SCALE (NOVOLOG) 1 VIAL SQ SCH (06:03)
[2025-03-08] MEDS ORDERED: GABAPENTIN 300 MG CAPSULE PO SCH (10:00)
[2025-03-08] MEDS: ESCITALOPRAM OXALATE 10 MG TABLET PO SCH (10:13)
[2025-03-08] MEDS: PANTOPRAZOLE 20 MG TABLET PO SCH (10:13)
[2025-03-08] MEDS: BUDESONIDE/FORMETEROL FUMARATE 160/4.5 mcg INHALER IH SCH (10:16)
[2025-03-08] MEDS: NYSTATIN POWDER 100,000 UNITS/GM - 15 GM TOPICAL POWDER TP SCH (10:16)
[2025-03-08 17:40] LABS: ABSOLUTE IMMATURE GRANULOCYTES 0.12 x10^3/uL (0.0-0.031); BASOPHILS # 0.04 x10^3/uL (0.01-0.08); EOSINOPHIL % 0.8 % (0.7-5.8); EOSINOPHILS # 0.11 x10^3/uL (0.04-0.36); HEMATOCRIT 28.7 % (34.1-44.9); HEMOGLOBIN 9.2 g/dL (11.2-15.7); MCHC 32.1 g/dl (32.2-35.5); MEAN CELL VOLUME 85.9 fl (79.4-94.8); MEAN PLT VOLUME 10.1 fl (9.4-12.3); MONOCYTE # 0.66 x10^3/uL (0.24-0.86); MONOCYTE % 4.8 % (4.7-12.5); PLATELET COUNT 310 x10^3/uL (182-369); RDW 18.1 % (12.5-17.0)
[2025-03-08] MEDS: PIPERACILLIN/TAZOB 2.25 GM 2.25 GM/50 ML BAG IVPB SCH (17:44)
[2025-03-08 18:01] LABS: CALCIUM 8.1 mg/dL (8.5-10.1); POTASSIUM 4.3 mmol/L (3.5-5.1)
[2025-03-08 18:05] LABS: CREATININE 5.1 mg/dL (0.55-1.3)
[2025-03-08] MEDS: ATORVASTATIN CA 80 MG TABLET (FP) PO SCH (21:34)
[2025-03-08] MEDS: CASPOFUNGIN ACETATE 70 MG in SODIUM CHLORIDE 250 ML IVPB ONE (22:36)
[2025-03-09 08:30] LABS: BASOPHILS # 0.05 x10^3/uL (0.01-0.08); EOSINOPHIL % 0.9 % (0.7-5.8); EOSINOPHILS # 0.13 x10^3/uL (0.04-0.36); HEMATOCRIT 27.4 % (34.1-44.9); HEMOGLOBIN 8.7 g/dL (11.2-15.7); MCHC 31.8 g/dl (32.2-35.5); MEAN CELL VOLUME 85.1 fl (79.4-94.8); MEAN PLT VOLUME 10.2 fl (9.4-12.3); MONOCYTE # 0.71 x10^3/uL (0.24-0.86); PLATELET COUNT 296 x10^3/uL (182-369); RDW 17.9 % (12.5-17.0)
[2025-03-09 09:25] LABS: POTASSIUM 3.7 mmol/L (3.5-5.1)
[2025-03-09 09:36] LABS: BLOOD UREA NITROGEN 52.1 mg/dL (7-18)
[2025-03-09 09:37] LABS: CALCIUM 8.3 mg/dL (8.5-10.1)
[2025-03-09 09:39] LABS: CREATININE 4.6 mg/dL (0.55-1.3)
[2025-03-09] MEDS: CASPOFUNGIN ACETATE 50 MG in SODIUM CHLORIDE 250 ML IVPB SCH (17:17)
[2025-03-09] MEDS: FUROSEMIDE 40 MG/4 ML INJECTABLE VIAL IVPUSH ONE (18:41)
[2025-03-09] MEDS: METOPROLOL TARTRATE 50 MG TABLET (FP) PO SCH (21:25)
[2025-03-10 08:12] LABS: HEMATOCRIT 29.7 % (34.1-44.9); HEMOGLOBIN 9.4 g/dL (11.2-15.7); MCHC 31.6 g/dl (32.2-35.5); MEAN CELL VOLUME 87.4 fl (79.4-94.8); PLATELET COUNT 321 x10^3/uL (182-369)
[2025-03-10 08:19] LABS: POTASSIUM 3.5 mmol/L (3.5-5.1)
[2025-03-10 08:50] LABS: CALCIUM 8.5 mg/dL (8.5-10.1)
[2025-03-10 08:53] LABS: BLOOD UREA NITROGEN 48.3 mg/dL (7-18)
[2025-03-10 08:58] LABS: BILIRUBIN,TOTAL 0.4 mg/dL (0.2-1); TOT PROT 5.2 g/dl (6.4-8.2)
[2025-03-10 09:15] LABS: ALBUMIN 1.7 g/dl (3.4-5.0); CREATININE 4.3 mg/dL (0.55-1.3)
[2025-03-10] MEDS: SODIUM CHLORIDE 1,000 ML IV SCH ×2 (11:15→15:10)
[2025-03-10] MEDS: METOPROLOL TARTRATE 5 MG/5 ML VIAL IVPUSH ONE ×3 (12:05→20:50)
[2025-03-10] MEDS: METOPROLOL TARTRATE 25 MG TABLET (FP) PO ONE ×2 (12:16→14:23)
[2025-03-10 14:48] VITALS: BMI 25.5
[2025-03-10] MEDS: POTASSIUM CHLORIDE ORAL LIQUID 20 MEQ/15 ML PO ONE (15:00)
[2025-03-10] MEDS: ACETAMINOPHEN 325 MG TABLET (FP) PO ONE (17:51)
[2025-03-10] MEDS: METOPROLOL TARTRATE 5 MG/5 ML VIAL IVPUSH PRN (19:45)
[2025-03-10] MEDS ORDERED: METOPROLOL TARTRATE 5 MG/5 ML VIAL ONE (20:46)
[2025-03-10] MEDS ORDERED: DIGOXIN 0.5 MG/2 ML AMPUL ONE (21:18)
[2025-03-10] MEDS: DIGOXIN 0.5 MG/2 ML AMPUL IVPUSH ONE (21:19)
[2025-03-10] MEDS: SODIUM CHLORIDE 500 ML IV STA (21:20)
[2025-03-10] MEDS: HEPARIN NA (PORCINE) 5,000 UNITS/ML 1ML VIAL SQ SCH (21:41)
[2025-03-10] MEDS: METOPROLOL TARTRATE 25 MG TABLET (FP) PO SCH (21:48)
[2025-03-10] MEDS ORDERED: METOPROLOL TARTRATE 50 MG TABLET (FP) PO SCH (22:00)
[2025-03-11 07:54] LABS: HEMATOCRIT 32.4 % (34.1-44.9); HEMOGLOBIN 9.9 g/dL (11.2-15.7); MCHC 30.6 g/dl (32.2-35.5); MEAN CELL VOLUME 87.1 fl (79.4-94.8); MEAN PLT VOLUME 9.9 fl (9.4-12.3); PLATELET COUNT 379 x10^3/uL (182-369); RDW 18.2 % (12.5-17.0)
[2025-03-11 08:16] LABS: INR 1.44 (0.83-1.09); PROTHROMBIN TIME (PATIENT) 15.7 SEC (9.7-13.0)
[2025-03-11 08:19] LABS: ACTIVATED PTT 33.9 SECONDS (25.2-36.5)
[2025-03-11 09:09] LABS: POTASSIUM 3.7 mmol/L (3.5-5.1)
[2025-03-11 09:20] LABS: ALBUMIN 1.6 g/dl (3.4-5.0)
[2025-03-11 09:23] LABS: CREATININE 3.8 mg/dL (0.55-1.3)
[2025-03-11 09:25] LABS: BILIRUBIN,TOTAL 0.6 mg/dL (0.2-1); TOT PROT 5.3 g/dl (6.4-8.2)
[2025-03-11 09:38] LABS: CALCIUM 8.5 mg/dL (8.5-10.1)
[2025-03-11] MEDS: COLLAGENASE CLOSTRIDIUM HIST. 30 GRAMS TUBE TP SCH (12:01)
[2025-03-12 07:42] LABS: HEMATOCRIT 29.4 % (34.1-44.9); HEMOGLOBIN 9.1 g/dL (11.2-15.7); MEAN CELL VOLUME 87.2 fl (79.4-94.8); MEAN PLT VOLUME 9.8 fl (9.4-12.3); PLATELET COUNT 417 x10^3/uL (182-369)
[2025-03-12 07:47] LABS: POTASSIUM 3.4 mmol/L (3.5-5.1)
[2025-03-12 07:53] LABS: CALCIUM 7.7 mg/dL (8.5-10.1)
[2025-03-12 07:54] LABS: ALBUMIN 1.4 g/dl (3.4-5.0); BLOOD UREA NITROGEN 42.4 mg/dL (7-18); MAGNESIUM 1.1 mg/dL (1.8-2.4)
[2025-03-12 07:57] LABS: CREATININE 3.5 mg/dL (0.55-1.3); PHOSPHOROUS 4.1 mg/dL (2.5-4.9)
[2025-03-12 07:58] LABS: BILIRUBIN,TOTAL 0.6 mg/dL (0.2-1); TOT PROT 4.6 g/dl (6.4-8.2)
[2025-03-12] MEDS: MAGNESIUM OXIDE 400 MG TABLET (FP) PO ONE (10:10)
[2025-03-12] MEDS: POTASSIUM CHLORIDE ORAL LIQUID 20 MEQ/15 ML PO ONE ×2 (10:11→10:36)
[2025-03-12 13:25] LABS: BODY FLUID MONOCYTE 3 %
[2025-03-12] MEDS: MAGNESIUM SULF 50% (8.12 MEQ/2 ML-1 GM VIAL) IVPB ONE (15:49)
[2025-03-12] MEDS: ACETAMINOPHEN 325 MG TABLET (FP) PO PRN (21:50)
[2025-03-13 05:57] VITALS: RESP 18
[2025-03-13 07:11] LABS: HEMATOCRIT 28.8 % (34.1-44.9); HEMOGLOBIN 9.1 g/dL (11.2-15.7); MCHC 31.6 g/dl (32.2-35.5); MEAN PLT VOLUME 9.5 fl (9.4-12.3); PLATELET COUNT 478 x10^3/uL (182-369); RDW 18.1 % (12.5-17.0)
[2025-03-13 07:30] LABS: POTASSIUM 3.9 mmol/L (3.5-5.1)
[2025-03-13 07:31] LABS: CALCIUM 7.9 mg/dL (8.5-10.1)
[2025-03-13 07:33] LABS: BLOOD UREA NITROGEN 39.5 mg/dL (7-18); MAGNESIUM 1.5 mg/dL (1.8-2.4)
[2025-03-13 07:36] LABS: CREATININE 3.3 mg/dL (0.55-1.3)
[2025-03-13] MEDS: MAGNESIUM OXIDE 400 MG TABLET (FP) PO ONE ×2 (11:09→11:16)
[2025-03-13] MEDS: MAGNESIUM SULF 50% (8.12 MEQ/2 ML-1 GM VIAL) IVPB ONE (12:18)
[2025-03-13 15:44] VITALS: BP 129/57; PULSE 65; TEMP 98.3
== END 2025-03-13 19:59 | DRG 871 ==
LOC: JER 07:29 → JERBED 09:43 → J6S 17:56 → J4W 03-06 22:28
PROVIDERS: ADMIT Internal Medicine; ATTEND Internal Medicine
PROC: 0S993ZZ Drainage of Right Hip Joint, Percutaneous Approach (ICD-10-PCS; principal; 2025-03-12)
DX: A41.89 Other specified sepsis (principal); L89.153 Pressure ulcer of sacral region, stage 3; N39.0 Urinary tract infection, site not specified; N17.9 Acute kidney failure, unspecified; J96.11 Chronic respiratory failure with hypoxia; E87.20 Acidosis, unspecified; I25.10 Atherosclerotic heart disease of native coronary artery without angina pectoris; I48.91 Unspecified atrial fibrillation; J44.9 Chronic obstructive pulmonary disease, unspecified; D64.9 Anemia, unspecified; I12.9 Hypertensive chronic kidney disease with stage 1 through stage 4 chronic kidney disease, or unspecified chronic kidney disease; E11.22 Type 2 diabetes mellitus with diabetic chronic kidney disease; N18.9 Chronic kidney disease, unspecified; I95.9 Hypotension, unspecified; R33.8 Other retention of urine; N28.1 Cyst of kidney, acquired; F32.9 Major depressive disorder, single episode, unspecified; M25.461 Effusion, right knee; M17.11 Unilateral primary osteoarthritis, right knee; M10.9 Gout, unspecified; M21.372 Foot drop, left foot; M21.371 Foot drop, right foot
CPT/HCPCS: 0241U-QW; 36415; 36430; 71045-TC-FY; 73562-TC-LT-FY; 73562-TC-RT-FY; 76775-TC; 80048; 80053; 81003; 82010; 82272; 82436; 82550; 82728; 82803; 82962; 83540; 83550; 83605; 83735; 84100; 84133; 84300; 85025; 85027; 85610; 85730; 86850; 86900; 86901; 86922; 87040; 87070; 87075; 87077; 87086; 87205; 89060; 93005; 93010; 93306-TC; 97116-GP; 97162-GP; 99285-25; J0637; J1644; P9058